=== PATIENT | male | born 1975 | race Caucasian/White ===

== ENCOUNTER 2022-07-10 17:52 | Emergency (ER) | payer MEDICAID, SELFPAY ==
[2022-07-10 17:54] VITALS: BP 168/130; PULSE 143; RESP 14; TEMP 36.8; O2SAT 96; BMI 27.1
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
[2022-07-10 18:46] VITALS: RESP 22
[2022-07-10] MEDS: morphine 4 mg/mL SDV 1 mL IVP (18:46)
[2022-07-10] MEDS: sodium chloride 0.9% 1,000 ML 999 ML IV (18:46)
[2022-07-10] MEDS: tetanus-dipt-pertussis 0.5 mL SDV IM (19:14)
--- NOTE | 2022-07-10 19:37 | ECG_ITS ---
[facility] Test Date: 2022-07-10 Pat Name: Kristian Freeman Department: Room: Gender: Male Bartacker: : 1975 Requested By: Panchito Rahman Order Number: [id number] Markie MD: Virgil Stephenson M.D. Measurements Intervals Monument Rate: 122 P: 74 VA: 132 QRS: 52 QRSD: 90 T: 69 QT: 291 QTc: 415 Interpretive Statements SINUS TACHYCARDIA LEFT VENTRICULAR HYPERTROPHY AND ST-T CHANGE [VOLTAGE CRITERIA PLUS ST/T ABNORMALITY] Compared to ECG 09/11/2015 17:56:01 ST (T wave) deviation now present T-wave abnormality no longer present Electronically Signed On 07-12-2022 14:05:04 HIDE BUYER by Virgil Stephenson M.D. [id number]
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
[2022-07-10 20:00] VITALS: BP 162/99
[2022-07-10 20:35] VITALS: RESP 18; O2SAT 97
[2022-07-10] MEDS: oxyCODONE 5 mg IR Tab/Cap PO (20:35)
[2022-07-10 21:51] VITALS: BP 164/100; PULSE 92; RESP 18; O2SAT 94
--- NOTE | 2022-07-11 08:09 | DCPLANNER ---
Addendum entered by Mary Yañez 07/23/22 09:25: [employer] received the following message from the ortho clinic regarding follow up appointment: patient number in chart states not in service- mailed letter to contact our office to schedule Original Note: [employer] had message to schedule a follow up appointment for patient with ortho. [employer] sent patients information to the front office staff at ortho. Patients information will be printed and reviewed. Clinic will call patient with appointment information.
== END 2022-07-10 21:50 | disposition home or self-care (01) ==
PROVIDERS: Emergency Provider Emergency Medicine
DX: S62.396A Other fracture of fifth metacarpal bone, right hand, initial encounter for closed fracture (principal); V09.09XA Pedestrian injured in nontraffic accident involving other motor vehicles, initial encounter; Z23 Encounter for immunization
CPT/HCPCS: 70450; 71260; 72125; 73090; 73130; 73552; 73562; 73700; 74177; 90471; 90715; 93005; 96360; 96361; 99285; J2270; J7030; Q9967